=== PATIENT | female | born 1985 | race African-American/Black ===

== ENCOUNTER 2020-04-25 06:16 | Inpatient (IN) ==
[2020-04-25] MEDS ORDERED: PITOCIN ONE (06:28)
[2020-04-25] MEDS ORDERED: BETADINE SOLN ONE (06:29)
[2020-04-25] MEDS ORDERED: D5 1/2 NS 1000 ML 1,000 ML IV ONE ×2 (06:29→20:02)
[2020-04-25] MEDS ORDERED: D5LR 1L W PITOCIN 10 UNITS/L 10 UNITS/1,000 ML BAG IV ONE ×2 (06:30→19:20)
[2020-04-25] MEDS ORDERED: D5 1/2 NS 1L W PITOCIN 20 UNITS/L 20 UNITS/1,000 ML BAG IV ONE (06:30)
[2020-04-25] MEDS: D5 1/2 NS 1000 ML 1,000 ML IV SCH ×2 (06:45→21:00)
[2020-04-25] MEDS: D5LR 1L W PITOCIN 10 UNITS/L 10 UNITS/1,000 ML BAG IV PRN (07:00)
[2020-04-25] MEDS ORDERED: PHENERGAN INJ 25 MG IM PRN (07:18)
[2020-04-25] MEDS ORDERED: PITOCIN IVP ONE (07:18)
[2020-04-25] MEDS ORDERED: MORPHINE SULFATE INJ 2 MG INJ IVP PRN (07:18)
[2020-04-25] MEDS ORDERED: REGLAN INJ 10 MG VIAL IVP PRN (07:18)
[2020-04-25 07:46] LABS: BASOPHILS % (AUTO) 0.3 % (0.2-1.0); EOSINOPHILS % (AUTO) 0.2 % (0.9-2.9); HEMATOCRIT 38.5 % (36.0-47.0); HEMOGLOBIN 12.9 g/dL (12.0-16.0); LYMPHOCYTES # (AUTO) 2.1 X10^3/uL (1.3-2.9); LYMPHOCYTES % (AUTO) 21.8 % (21.0-51.0); MEAN CORPUSCULAR HEMOGLOBIN 32.4 pg (27.0-34.0); MEAN CORPUSCULAR HGB CONC 33.6 g/dL (33.0-35.0); MEAN CORPUSCULAR VOLUME 96.5 fL (80.0-100.0); MONOCYTES # (AUTO) 0.9 x10^3/uL (0.3-0.8); MONOCYTES % (AUTO) 9.1 % (0.0-13.0); NEUTROPHILS # (AUTO) 6.7 x10^3/uL (2.2-4.8); NEUTROPHILS % (AUTO) 68.6 % (42.0-75.0); PLATELET COUNT 156 X10^3/uL (150.0-450.0); RED BLOOD COUNT 3.99 X10^6/uL (3.5-5.4); RED CELL DISTRIBUTION WIDTH 14.8 % (11.6-16.5); WHITE BLOOD COUNT 9.8 X10^3/uL (3.6-10.0)
[2020-04-25 07:52] LABS: APPEARANCE,URINE CLEAR (CLEAR); COLOR,URINE YELLOW (YELLOW)
[2020-04-25 07:53] LABS: BILIRUBIN,URINE NEGATIVE (NEGATIVE); BLOOD UREA NITROGEN 9 mg/dL (7-18); BLOOD/HEMOGLOBIN,URINE NEGATIVE (NEGATIVE); CALCIUM 8.9 mg/dL (8.5-10.1); CARBON DIOXIDE 22.3 mmol/L (21-32); CHLORIDE 105 mmol/L (98-107); CREATININE 0.68 mg/dL (0.55-1.02); GLUCOSE, URINE NEGATIVE (NEGATIVE); KETONES,URINE NEGATIVE (NEGATIVE); LEUKOCYTE ESTERASE ,URINE NEGATIVE (NEGATIVE); NITRITES,URINE NEGATIVE (NEGATIVE); PROTEIN,URINE NEGATIVE (NEGATIVE); SODIUM 139 mmol/L (136-145); UROBILINOGEN,URINE NORMAL (NORMAL); eGFR NON BLACK RACES > 60 (>60)
[2020-04-25] MEDS ORDERED: STADOL INJ ONE ×2 (14:57→20:01)
[2020-04-25] MEDS: STADOL INJ IVP PRN ×2 (15:05→20:00)
[2020-04-25] MEDS ORDERED: CYTOTEC ONE (19:48)
[2020-04-25] MEDS: CYTOTEC VG PRN (20:00)
[2020-04-25] MEDS ORDERED: CYTOTEC VG PRN (21:44)
[2020-04-26] MEDS: STADOL INJ IVP PRN ×2 (00:15→03:25)
[2020-04-26] MEDS ORDERED: STADOL INJ ONE ×2 (00:21→03:21)
[2020-04-26] MEDS: CYTOTEC VG PRN (01:00)
[2020-04-26] MEDS ORDERED: D5 1/2 NS 1000 ML 1,000 ML IV ONE (04:03)
[2020-04-26] MEDS ORDERED: NUBAIN INJ 20 MG AMP ONE (05:56)
[2020-04-26] MEDS: NUBAIN INJ 200 MG VIAL MULTIDOSE IVP PRN ×2 (06:10→09:05)
[2020-04-26] MEDS: D5 1/2 NS 1000 ML 1,000 ML IV SCH (07:00)
[2020-04-26] MEDS: D5LR 1L W PITOCIN 10 UNITS/L 10 UNITS/1,000 ML BAG IV PRN (09:15)
[2020-04-26] MEDS ORDERED: FENTANYL INJ 100 mcg ONE ×2 (10:07→10:18)
[2020-04-26] MEDS ORDERED: LR 1000 ML IV 1,000 ML IV ONE (10:07)
[2020-04-26] MEDS ORDERED: ROPIVACAINE EPI ONE (10:10)
[2020-04-26] MEDS ORDERED: SODIUM CHLORIDE EPI ONE (10:10)
[2020-04-26] MEDS ORDERED: FENTANYL 2 MCG/ML EPI ONE (10:10)
[2020-04-26] MEDS ORDERED: NAROPIN EPIDURAL 0.2% 100 ML ONE (10:16)
[2020-04-26] MEDS ORDERED: XYLOCAINE 1 % (PLAIN) ONE (12:45)
[2020-04-26] MEDS ORDERED: MOTRIN TAB 800 MG PO PRN (13:57)
[2020-04-26] MEDS ORDERED: MILK OF MAGNESIA PO PRN (13:57)
[2020-04-26] MEDS ORDERED: AMBIEN PO PRN (13:57)
[2020-04-26] MEDS ORDERED: DERMOPLAST PAIN RELIEF SPRAY TOP PRN (13:57)
[2020-04-26] MEDS ORDERED: D5 1/2 NS 1000 ML 1,000 ML with PITOCIN 20 UNITS IV SCH ×2 (14:00)
[2020-04-26] MEDS: SYNTHROID 125 mcg TAB PO SCH (16:25)
[2020-04-27 06:33] LABS: HEMATOCRIT 34.5 % (36.0-47.0); HEMOGLOBIN 11.5 g/dL (12.0-16.0)
[2020-04-27] MEDS: PRENATAL PLUS PO SCH (08:29)
[2020-04-27] MEDS: SYNTHROID 125 mcg TAB PO SCH (16:14)
[2020-04-28] MEDS: PRENATAL PLUS PO SCH (08:12)
[2020-04-28 08:14] VITALS: BP 130/83
== END 2020-04-28 11:00 | disposition home or self-care (01) | DRG 807 ==
LOC: LD 06:16 → MED/SURG 04-26 14:02
PROVIDERS: ADMIT Obstetrics & Gynecology Obstetrics; ATTEND Obstetrics & Gynecology Obstetrics